=== PATIENT | female | born 1955 | race Caucasian/White ===

== ENCOUNTER → 2019-05-15 | Outpatient (CLI) | payer MEDICARE ==
--- NOTE | 2019-05-15 12:22 | BD ---
EXAMINATION TYPE: Axial Bone Density DATE OF EXAM: 05/15/2019 COMPARISON: NONE CLINICAL HISTORY: Z 78.0 Height: 64 inches Weight: 183 FRAX RISK QUESTIONS: Alcohol (3 or more units per day): no Family History (Parent hip fracture): no Glucocorticoids (More than 3mos): no (Ex: prednisone, prednisolone, methylprednisolone, dexamethasone, and hydrocortisone). History of Fracture in Adulthood: no Secondary Osteoporosis: 1. Type 1 Diabetes: no 2. Hyperthyroidism: no 3. Menopause before 45: no 4. Malnutrition: no 5. Chronic liver disease: no Rheumatoid Arthritis: no Current Tobacco Use: no RISK FACTORS HISTORY OF: Family History of Osteoporosis: not to knowledge of patient Active: yes Diet low in dairy products/other sources of calcium: several servings a week Postmenopausal woman: yes Take estrogen and/or progesterone medications: no Lost more than 2 inches in height since high school: no Frequent falls: no Poor Health: no Hyperparathyroidism: no Adrenal Insufficiency: no MEDICATIONS: Prednisone or other steroids: no Thyroid Medications: no Osteoporosis Medications: no Additional Medications: Additional History: EXAM MEASUREMENTS: Bone mineral densitometry was performed using the [employer] System. Bone mineral density as measured about the Lumbar spine is: ----- L1-L4(G/cm2): 1.209 T Score Values are as follows: ----- L2: 0.1 ----- L3: 0.6 ----- L4: -0.4 ----- L1-L4: 0.2 Bone mineral density not previously done at this facility; done elsewhere years ago Bone mineral density about the R hip (g/cm2): 0.935 Bone mineral density about the L hip (g/cm2): 1.009 T Score values are as follows: -----R Neck: -0.7 -----L Neck: -0.2 -----R Total: 0.1 -----L Total: 0.6 Bone mineral density not previously done at this facility; done elsewhere years ago IMPRESSION: Osteopenia (T Score between -2.5 and -1). There is slightly increased risk of fracture and the patient may be considered for treatment. Re-Screen 2-5 years. NOTE: T-SCORE=SD OF THE YOUNG ADULT MEAN.
--- NOTE | 2019-05-16 13:23 | MM ---
Reason for exam: screening (asymptomatic). History: Patient is postmenopausal. Family history of breast cancer in paternal grandmother. Took hormonal contraceptives for 7 years beginning at age 21. Physical Findings: A clinical breast exam by your physician is recommended on an annual basis and results should be correlated with mammographic findings. MG 3D Screening Mammo W/Cad Bilateral CC and MLO view(s) were taken. The breast tissue is heterogeneously dense. This may lower the sensitivity of mammography. There is an obscured 7mm mass in the right lower inner quadrant, 3-4cm from nipple. On the left there is a 1.5cm oval mass 8cm from nipple in the central, lateral breast. There is an 8mm group of upper outer quadrant middle depth left calcifications. ASSESSMENT: Incomplete: need additional imaging evaluation, BI-RAD 0 RECOMMENDATION: Special view mammogram and ultrasound of both breasts. [facility] will attempt to contact patient to return for supplemental views and ultrasound.
== END | disposition home or self-care (01) ==
LOC: RADBDWWP 08:24
PROVIDERS: ATTEND Family Medicine
DX: Z12.31 Encounter for screening mammogram for malignant neoplasm of breast (principal); M85.80 Other specified disorders of bone density and structure, unspecified site; Z78.0 Asymptomatic menopausal state
CPT/HCPCS: 77063; 77067; 77080

== ENCOUNTER → 2019-06-04 | Outpatient (CLI) | payer MEDICARE ==
--- NOTE | 2019-06-04 11:42 | MM ---
Reason for exam: additional evaluation requested from abnormal screening. Last mammogram was performed 1 month ago. History: Patient is postmenopausal. Family history of breast cancer in paternal grandmother. Took hormonal contraceptives for 7 years beginning at age 21. Physical Findings: Nurse did not find any significant physical abnormalities on exam. MG 3D Work Up W/Cad REBEL Bilateral ML view(s) were taken. Spot compression CC and spot compression MLO view(s) were taken of the right breast. CC with magnification and ML with magnification view(s) were taken of the left breast. Prior study comparison: May 15, 2019, bilateral MG 3d screening mammo w/cad. The breast tissue is heterogeneously dense. This may lower the sensitivity of mammography. There is a right 6mm lobulated mass compatible with a cyst on ultrasound. There is a 1.3cm group of left upper outer quadrant linear coarse heterogenous calcifications. Biopsy recommended. Adjacent similar appearing 2mm group of calcifications. Recommendation based on biopsy of first larger group of calcifications. These results were verbally communicated with the patient and result sheet given to the patient on 06/04/19. ASSESSMENT: Suspicious, BI-RAD 4 RECOMMENDATION: Stereotactic core biopsy of the left breast. Called Dr. Menjivar's office with mammographic findings and has scheduled an appointment for the patient for 06/28/19 at 7:[address] Kenny. Biopsy scheduled for 07/05/19 at 8:00. PRELIMINARY REPORT CALLED AND FAXED TO DR. KENNY ON 06/04/19.
--- NOTE | 2019-06-04 11:44 | USB ---
Reason for exam: additional evaluation requested from abnormal screening. History: Patient is postmenopausal. Family history of breast cancer in paternal grandmother. Took hormonal contraceptives for 7 years beginning at age 21. US Breast Workup Limited REBEL Right limited breast ultrasound including focal area of concern, retroareolar and axilla demonstrates a 0.4 x 0.3 x 0.4cm oval, cystic, hypoechoic lesion at 3 o'clock, complicated cyst, corresponds with mammogram. Left limited breast ultrasound including focal area of concern, retroareolar and axilla demonstrates a 1.3 x 1.1 x 1.3cm round, cystic, hypoechoic lesion at 3 o'clock, complicated cyst, correlates with mammogram. These results were verbally communicated with the patient and result sheet given to the patient on 06/04/19. ASSESSMENT: Incomplete: need additional imaging evaluation, BI-RAD 0 RECOMMENDATION: Special view mammogram of both breasts.
== END | disposition home or self-care (01) ==
LOC: RADMAMWWP 08:23
PROVIDERS: ATTEND Family Medicine
DX: R92.8 Other abnormal and inconclusive findings on diagnostic imaging of breast (principal)
CPT/HCPCS: 77066; 76642; G0279; 77062

== ENCOUNTER → 2019-06-28 | Outpatient (CLI) | payer MEDICARE ==
[2019-06-28 07:35] VITALS: BP 131/84; PULSE 63; RESP 16; TEMP 98.1
--- NOTE | 2019-06-28 08:39 | P.GSHP ---
History of Present Illness H&P Date: 06/28/19 Chief Complaint: Abnormal left breast mammogram Soila is a 64 year old white female seen in consultation for Dr. Jaime regarding an abnormal mammogram of the left breast. She had not had a mammogram for approximately 20 years. On 12160607 a bilateral mammogram was performed. This revealed and scared 7 mm mass in the right lower inner quadrant. On the left there was a 1.5 cm oval mass as well as an 8 mm group of upper outer quadrant middle depth calcifications. It was recommended she undergo additional radiographic views including bilateral ultrasound and bilateral diagnostic mammograms. On the ultrasound she was noted to have cystic lesions bilaterally in the breast. On the additional left breast mammogram she was noted to have upper outer quadrant linear coarse calcifications. Biopsy was recommended. An adjacent similar 2 mm group of calcifications was noted and recommendation for biopsy of this was based on the results from the biopsy of the first group of calcifications. The patient states that she has a pulling sensation noted in her left breast. It was noted when she reaches. She does not have the sensation in the right breast. Sensation is been present for several years. She felt that this was insignificant Intel she was told she needed a biopsy in the left side and now somewhat concerned. She does not feel any discrete lumps masses or nodules in either breast. She is not complaining of any nipple discharge in either breast. She has no skin changes in the breast and no nipple inversion. She has no history of any recent trauma or infection in either breast. Caffeine: ice tea and pop daily nicotine: none chocolate: daily Family History: brother: testicular cancer mother: melanoma paternal grandmother: breast cancer nephew: lung at 17 Hormonal History: menarche: 12 , breast fed: no, first born at 25 menopasue: 49 BCP: 7 years hormones: none Surgical History: 2 C-sections Medical Hsitory: none Social History: smoke: none alcohol: occasional drugs: none - Constitutional Constitutional: Denies chills, Denies fever - EENT Eyes: denies blurred vision, denies pain Ears: deny: decreased hearing, tinnitus Ears, nose, mouth and throat: Denies headache, Denies sore throat - Breasts Breasts: bilateral: as per HPI - Cardiovascular Cardiovascular: Denies chest pain, Denies shortness of breath - Respiratory Respiratory: Denies cough, Denies 7 - Gastrointestinal Gastrointestinal: Denies abdominal pain, Denies diarrhea, Denies nausea, Denies vomiting - Genitourinary (Female) Genitourinary: Denies dysuria, Denies hematuria - Menstruation Menstruation: Reports postmenopausal - Musculoskeletal Musculoskeletal: Denies myalgias - Integumentary Comment: eczema Integumentary: Denies pruritus, Denies rash - Neurological Neurological: Denies numbness, Denies weakness - Psychiatric Psychiatric: Denies anxiety, Denies depression - Endocrine Endocrine: Denies fatigue, Denies weight change - Hematologic/Lymphatic Comment: none - Allergic/Immunologic Allergic/Immunologic: Reports as per HPI Past Medical History Past Medical History: No Reported History History of Any Multi-Drug Resistant Organisms: None Reported Additional Past Surgical History / Comment(s): section 1980 & 1984; Past Anesthesia/Blood Transfusion Reactions: No Reported Reaction Past Psychological History: No Psychological Hx Reported Smoking Status: Never smoker Past Alcohol Use History: Rare Past Drug Use History: None Reported Medications and Allergies Home Medications Medication Instructions Recorded Confirmed Type No Known Home Medications 06/19/19 06/28/19 History Allergies Allergy/AdvReac Type Severity Reaction Status Date / Time No Known Allergies Allergy Verified 06/28/19 07:19 Surgical - Exam Vital Signs Temp Pulse Resp BP Pulse Ox 98.1 F 63 16 131/84 96 06/28/19 07:26 06/28/19 07:26 06/28/19 07:26 06/28/19 07:26 06/28/19 07:26 BMI 30 - General well developed, well nourished, no distress - Eyes normal ocular movement, no icteric - ENT normal pinna, no hearing loss - Neck no masses, trachea midline, no lymphadectomy, no venous distension - Respiratory normal expansion, normal respiratory effort, clear to percussion, clear to auscultation - Cardiovascular Rhythm: regular Heart Sounds: normal: S1, S2 - Abdomen Abdomen: soft, non tender, bowel sounds, no guarding, no rigid, no rebound - Neurologic no disoriented, no combative - Musculoskeletal normal gait, normal posture - Psychiatric oriented to time, oriented to person, oriented to place, speech is normal, memory intact breast exam: BRA 38C ptosis: grade 2 Inspection: Eczema right axillary area, no nipple inversion, no other skin changes of concern Palpation: Right breast: Multi-positional exam fibrocystic disease of dominant masses or nodules of concern Right axilla: No adenopathy of concern Left breast: Multiple positional exam no dominant masses or nodules of concern Left axilla: No adenopathy of concern Results Mammogram and ultrasound reports reviewed Assessment and Plan Assessment: Impression: 1. Radiographic abnormality right and left breast 2. Fibrocystic breast changes 3. Eczema right axilla/bilateral breast, triamcinolone acetonide 4. family history of breast cancer 5. family history of cancer Plan: 1. sterotactic biopsy of the left breast 2. depending on results of the biopsy possible biopsy of second site in left breast 3. decrease caffeine intake 4. continue cream to skin areas of concern I have discussed causes of breast discomfort with the patient. I have recommended that she stop the caffeine, and the potential risks of theophylline intake. We've also discussed the radiographic abnormalities in both the right and left breasts. She has bilateral ultrasound abnormalities which are being followed at this time. In the left breast an area of microcalcifications been sampled. If this is abnormal she will have sampling of the second area in the left breast. She additionally understands the risks and benefits of the stereotactic core biopsy and wishes to proceed. Cc: Dr. Jaime Encounter 35 minutes, > 50% of time in planning and counselling Time with Patient: Greater than 30
== END | disposition home or self-care (01) ==
LOC: WWCWWP 07:06
PROVIDERS: ATTEND Surgery
DX: Z53.9 Procedure and treatment not carried out, unspecified reason (principal)

== ENCOUNTER → 2019-07-05 | Day surgery (SDC) | payer MEDICARE ==
[2019-07-05 07:20] VITALS: RESP 16; TEMP 97.8
--- NOTE | 2019-07-05 09:04 | P.OP ---
Date of Procedure: 07/05/19 Preoperative Diagnosis: Mammographic abnormality right breast, 1.3 cm group of left upper outer quadrant course heterogeneous calcifications Postoperative Diagnosis: Same Procedure(s) Performed: Left breast stereotactic core biopsy Anesthesia: local Surgeon: Supriya Petit Estimated Blood Loss (ml): 0 Pathology: other (Left breast tissue/radiograph reveals microcalcifications of concern in sampled) Condition: stable Disposition: same day Indications for Procedure: Microcalcifications of concern left breast Operative Findings: Microcalcifications of concern removed Description of Procedure: Cydnie 64-year-old white female who had a radiographic abnormality noted in her left breast. Recommendation was for stereotactic core biopsy of a group of heterogeneous calcifications in the left breast in the upper-outer quadrant region. This and benefits of the procedure were discussed with the patient and she wished to proceed. Patient was taken to the stereotactic core biopsy room and positioned on the low rad table. Cloth Shearer film was obtained and the calcifications of concern were identified. The approach was a lateral to medial approach. The breast was then prepped using Betadine. 24 mL of 1% lidocaine half of which had epinephrine were used to anesthetize the area of concern. A 9-gauge vacuum-assisted core rotating biopsy needle was advanced to the correct coordinates. The needle was fired and post-fire films were obtained. The location was noted to be slightly away from the calcifications and the needle was moved in a more negative X direction. Additional film was obtained and the needle. The needle was noted to be in the correct location. 6 core biopsies were then obtained from the 10, 11 and 12 positions. Radiograph of the specimen revealed the calcifications of concern had been sampled. The approach was a lateral to medial approach. A secure pj topically clip was then left in place. The patient tolerated procedure in stable condition. The specimen was sent to pathology.
[2019-07-05 09:24] VITALS: BP 100/65; PULSE 62
--- NOTE | 2019-07-05 09:35 | MM ---
EXAMINATION TYPE: MG stereo VAD BX LT DATE OF EXAM: 07/05/2019 COMPARISON: 06/04/2019 CLINICAL HISTORY: Left breast calcifications for which stereotactic guided biopsy was recommended. TECHNIQUE: Stereotactic guided core biopsy of left breast. FINDINGS: The procedure of stereotactic guided core biopsy was explained to the patient. Benefits, alternatives, and risks were discussed. An informed consent was then obtained. Preprocedural timeout was performed. The shortness pathway for biopsy was chosen to approximately 1.3 cm group of calcifications in the left upper outer quadrant. Shortness pathway was lateral medial approach. I performed the localization, then surgeon, Dr. Marcus Tanner performed the remainder of the procedure. A vacuum assisted biopsy gun was used to obtain multiple core samples. The patient tolerated the procedure well without any immediate complication. The patient was kept in the radiology department for short stay after the procedure and then discharged home in stable condition. Targeted calcifications are identified in specimen mammogram. Post biopsy mammogram shows the clip to appear in satisfactory position relative to the targeted area of concern on the preprocedure images. IMPRESSION: SUCCESSFUL, UNCOMPLICATED STEREOTACTIC GUIDED CORE BIOPSY OF A 1.3 CM GROUP OF CALCIFICATIONS IN THE UPPER OUTER QUADRANT OF THE LEFT BREAST, FULL PATHOLOGY RESULTS TO FOLLOW. Pathology Results: Benign LEFT BREAST LESION, NEEDLE CORE BIOPSIES: Usual duct hyperplasia and fibroadenomatoid lesions in a background of fibrocystic spectrum changes with multiple coarse stromal, vascular and intraductal mineralizations. Recommendation Follow up mammogram of the left breast in 6 months. YASSINE
== END ==
LOC: RADMAMWWP 06:50
PROVIDERS: ATTEND Surgery
DX: N62 Hypertrophy of breast (principal); R92.0 Mammographic microcalcification found on diagnostic imaging of breast; R92.8 Other abnormal and inconclusive findings on diagnostic imaging of breast
CPT/HCPCS: 88305; 19081; A4648; J2001

== ENCOUNTER → 2020-01-03 | Outpatient (CLI) | payer MEDICARE ==
--- NOTE | 2020-01-08 09:28 | MM ---
Reason for exam: follow-up at short interval from prior study. Last mammogram was performed 7 months ago. History: Patient is postmenopausal. Family history of breast cancer in paternal grandmother. Benign MG stereo VAD BX LT of the left breast, July 05, 2019. Took hormonal contraceptives for 7 years beginning at age 21. Physical Findings: Nurse did not find any significant physical abnormalities on exam. MG 3D Diag Mammo W/Cad LT CC and MLO view(s) were taken of the left breast. Prior study comparison: June 04, 2019, bilateral MG 3d work up w/cad REBEL. May 15, 2019, bilateral MG 3d screening mammo w/cad. The breast tissue is heterogeneously dense. This may lower the sensitivity of mammography. Finding: There are large, stable, dystrophic calcifications in the middle posterior position of the left breast. Benign punctate calcifications in the left breast. Previous mammotome biopsy in the left breast. There is a chronic nodularity in the left breast, decreased in size. There is no new dominant lesion in the left breast. These results were verbally communicated with the patient and result sheet given to the patient on 01/03/20. ASSESSMENT: Benign, BI-RAD 2 RECOMMENDATION: Return to routine screening mammogram schedule for both breasts. Back on schedule for April 2020.
== END | disposition home or self-care (01) ==
LOC: RADMAMWWP 09:08
PROVIDERS: ATTEND Surgery
DX: R92.8 Other abnormal and inconclusive findings on diagnostic imaging of breast (principal)
CPT/HCPCS: 77065; G0279; 77061

== ENCOUNTER → 2020-01-17 | Outpatient (CLI) | payer MEDICARE ==
[2020-01-17 09:42] VITALS: BP 120/74; PULSE 60; RESP 16; TEMP 97.9
--- NOTE | 2020-01-17 09:56 | P.PN ---
Galen Cm is a 64 year old white female seen in consultation 06-28-[address] Jaime regarding an abnormal mammogram of the left breast. She had not had a mammogram for approximately 20 years. On 12160607 a bilateral mammogram was performed. This revealed a 7 mm mass in the right lower inner quadrant. On the left there was a 1.5 cm oval mass as well as an 8 mm group of upper outer quadrant middle depth calcifications. It was recommended she undergo additional radiographic views including bilateral ultrasound and bilateral diagnostic mamm ograms. On the ultrasound she was noted to have cystic lesions bilaterally in the breast. On the additional left breast mammogram she was noted to have upper outer quadrant linear coarse calcifications. Biopsy was recommended. An adjacent similar 2 mm group of calcifications was noted and recommendation for biopsy of this was based on the results from the biopsy of the first group of calcifications. She had a stero biopsy of the left breast on 07-05-19 which was benign. She had a repeat left breqsa mammogram on 01-03-20 which was benign BIRAD 2 and bilateral mammogram in April 2020 was recommended. She is not complaining of any lumps masses or nodules in her breast. Caffeine: ice tea and pop daily nicotine: none chocolate: daily Family History: brother: testicular cancer mother: melanoma paternal grandmother: breast cancer nephew: lung at 17 Hormonal History: menarche: 12 , breast fed: no, first born at 25 menopasue: 49 BCP: 7 years hormones: none Surgical History: 2 C-sections Medical Hsitory: none Social History: smoke: none alcohol: occasional drugs: none - Constitutional Constitutional: Denies chills, Denies fever - EENT Eyes: denies blurred vision, denies pain Ears: deny: decreased hearing, tinnitus Ears, nose, mouth and throat: Denies headache, Denies sore throat - Breasts Breasts: bilateral: as per HPI - Cardiovascular Cardiovascular: Denies chest pain, Denies shortness of breath - Respiratory Respiratory: Denies cough - Gastrointestinal Gastrointestinal: Denies abdominal pain, Denies diarrhea, Denies nausea, Denies vomiting - Genitourinary (Female) Genitourinary: Denies dysuria, Denies hematuria - Menstruation Menstruation: Reports postmenopausal - Musculoskeletal Musculoskeletal: Denies myalgias - Integumentary Comment: eczema Integumentary: Denies pruritus, Denies rash - Neurological Neurological: Denies numbness, Denies weakness - Psychiatric Psychiatric: Denies anxiety, Denies depression - Endocrine Endocrine: Denies fatigue, Denies weight change - Hematologic/Lymphatic Comment: none - Allergic/Immunologic Allergic/Immunologic: Reports as per HPI Objective - Vital Signs Vital signs: Vital Signs Temp 97.9 F 01/17/20 09:39 Pulse 60 01/17/20 09:39 Resp 16 01/17/20 09:39 BP 120/74 01/17/20 09:39 Pulse Ox 98 01/17/20 09:39 Intake & Output 01/16/20 01/17/20 01/17/20 18:59 06:59 18:59 Weight 81.647 kg - Exam BMI 30 - Constitutional General appearance: Present: average body habitus - EENT Eyes: Present: EOMI ENT: Present: hearing grossly normal - Neck Neck: Present: normal ROM - Respiratory Respiratory: bilateral: CTA - Cardiovascular Rhythm: regular Heart sounds: normal: S1, S2 - Gastrointestinal General gastrointestinal: Present: normal bowel sounds, soft - Integumentary Integumentary Comment(s): eczema bilateral wrist, right breast upper outer quadrant extending into the axilla Integumentary: Present: normal turgor - Musculoskeletal Musculoskeletal: Present: gait normal - Psychiatric Psychiatric: Present: A&O x's 3, appropriate affect, intact judgment & insight - Additional findings Additional findings: Breast exam: BRA 40C inspection: Eczema upper outer quadrant right breast extending into the axilla, ptosis grade 2 bilateral Palpation: Right breast: Multiple positional exam fibrocystic dense breast tissue no dominant masses or nodules of concern Right axilla: Eczema no adenopathy of concern Left breast: Multi-positional exam fibrocystic changes dense breast tissue no dominant masses or nodules of concern Left axilla: No adenopathy of concern Fungal infection under her left breast Assessment and Plan Assessment: Impression: 1. Fibrocystic breast changes 2. Fungal infection in her left breast 3. Eczema Plan: 1. Nystatin under her left breast 2. Bilateral repeat mammogram in April with physician exam at that time 3. Patient is following with primary care doctor regarding eczema CC: Dr. Jaime encounter 20 minutes, > 50% of time in planning and counselling
== END | disposition home or self-care (01) ==
LOC: WWCWWP 08:59
PROVIDERS: ATTEND Surgery
DX: Z53.9 Procedure and treatment not carried out, unspecified reason (principal)

== ENCOUNTER → 2020-05-05 | Outpatient (CLI) | payer MEDICARE | END | disposition home or self-care (01) | LOC: RADMAMWWP 08:54 | PROVIDERS: ATTEND Surgery | DX: Z53.9 Procedure and treatment not carried out, unspecified reason (principal) ==

== ENCOUNTER → 2020-06-02 | Outpatient (CLI) | payer MEDICARE ==
--- NOTE | 2020-06-05 09:53 | MM ---
Reason for exam: screening (asymptomatic). Last mammogram was performed 5 months ago. History: Patient is postmenopausal. Family history of breast cancer in paternal grandmother. Benign MG stereo VAD BX LT of the left breast, July 05, 2019. Took hormonal contraceptives for 7 years beginning at age 21. Physical Findings: A clinical breast exam by your physician is recommended on an annual basis and results should be correlated with mammographic findings. MG 3D Screening Mammo W/Cad Bilateral CC and MLO view(s) were taken. Prior study comparison: January 03, 2020, left breast MG 3d diag mammo w/cad LT. June 04, 2019, bilateral MG 3d work up w/cad REBEL. The breast tissue is heterogeneously dense. This may lower the sensitivity of mammography. Finding: There are typically benign coarse calcifications in the left breast. No significant changes in finding since January 03, 2020 and June 04, 2019. ASSESSMENT: Benign, BI-RAD 2 RECOMMENDATION: Routine screening mammogram of both breasts in 1 year.
== END | disposition home or self-care (01) ==
LOC: RADMAMWWP 12:57
PROVIDERS: ATTEND Surgery
DX: Z12.31 Encounter for screening mammogram for malignant neoplasm of breast (principal)
CPT/HCPCS: 77063; 77067

== ENCOUNTER → 2020-06-06 | Outpatient (CLI) | payer MEDICARE ==
[2020-06-06 12:09] VITALS: BP 127/63; PULSE 85; RESP 16; TEMP 99.2
--- NOTE | 2020-06-06 12:17 | P.PN ---
Subjective Progress Note Date: 06/06/20 Principal diagnosis: results of mammogram Soila is a 64 year old white female seen in consultation 06-28-[address] Jaime regarding an abnormal mammogram of the left breast. She had not had a mammogram for approximately 20 years. On [id number] a bilateral mammogram was performed. This revealed a 7 mm mass in the right lower inner quadrant. On the left there was a 1.5 cm oval mass as well as an 8 mm group of upper outer quadrant middle depth calcifications. It was recommended she undergo additional radiographic views including bilateral ultrasound and bilateral diagnostic mammograms. On the ultrasound she was noted to have cystic lesions bilaterally in the breast. On the additional left breast mammogram she was noted to have upper outer quadrant linear coarse calcifications. Biopsy was recommended. An adjacent similar 2 mm group of calcifications was noted and recommendation for biopsy of this was based on the results from the biopsy of the first group of calcifications. She had a stero biopsy of the left breast on 07-05-19 which was benign. She had a repeat left breast mammogram on 01-03-20 which was benign BIRAD 2 and bilateral mammogram in April 2020 was recommended. On her last visit of she was noted have a fungal infection under her left breast. She feels that this is most likely resolved at this time, as had eczema in her right axilla. A bilateral mammogram was done on 06-02-20 which was benign BIRAD 2. She is not complaining of any lumps masses or nodules in her breast. Caffeine: ice tea and pop daily nicotine: none chocolate: daily Family History: brother: testicular cancer mother: melanoma paternal grandmother: breast cancer nephew: lung at 17 Hormonal History: menarche: 12 , breast fed: no, first born at 25 menopasue: 49 BCP: 7 years hormones: none Surgical History: 2 C-sections Medical Hsitory: none Social History: smoke: none alcohol: occasional drugs: none - Constitutional Constitutional: Denies chills, Denies fever - EENT Eyes: denies blurred vision, denies pain Ears: deny: decreased hearing, tinnitus Ears, nose, mouth and throat: Denies headache, Denies sore throat - Breasts Breasts: bilateral: as per HPI - Cardiovascular Cardiovascular: Denies chest pain, Denies shortness of breath - Respiratory Respiratory: Denies cough - Gastrointestinal Gastrointestinal: Denies abdominal pain, Denies diarrhea, Denies nausea, Denies vomiting - Genitourinary (Female) Genitourinary: Denies dysuria, Denies hematuria - Menstruation Menstruation: Reports postmenopausal - Musculoskeletal Musculoskeletal: Denies myalgias - Integumentary Comment: eczema Integumentary: Denies pruritus, Denies rash - Neurological Neurological: Denies numbness, Denies weakness - Psychiatric Psychiatric: Denies anxiety, Denies depression - Endocrine Endocrine: Denies fatigue, Denies weight change - Hematologic/Lymphatic Comment: none - Allergic/Immunologic Allergic/Immunologic: Reports as per HPI Objective - Vital Signs Vital signs: Intake & Output 06/05/20 06/06/20 06/06/20 18:59 06:59 18:59 Weight 81.647 kg - Exam BMI 30.9 - Constitutional General appearance: Present: average body habitus - EENT Eyes: Present: EOMI ENT: Present: hearing grossly normal - Neck Neck: Present: normal ROM - Respiratory Respiratory: bilateral: CTA - Cardiovascular Rhythm: regular Heart sounds: normal: S1, S2 - Gastrointestinal General gastrointestinal: Present: soft - Integumentary Integumentary Comment(s): resolving eczema right axilla No evidence of fungal infection under either breast Eczema bilateral forearms Integumentary: Present: normal turgor - Musculoskeletal Musculoskeletal: Present: gait normal - Psychiatric Psychiatric: Present: A&O x's 3 - Additional findings Additional findings: breast exam: BRA 38C inspection: Resolved fungal infection under her left breast Palpation: Right breast: Multi-positional exam no dominant masses or nodules of concern Right axilla: Resolved eczema no adenopathy of concern Left breast: Multi-positional exam no dominant masses or nodules of concern Left axilla: No adenopathy of concern Assessment and Plan Assessment: Impression: 1. Fibrocystic breast changes 2. Resolved fungal infection under the breast Plan: 1. Bilateral mammogram 1 year, to be a primary care physician will follow. Follow up here on an as needed basis Cc: Dr. Jaime encounter 15 minutes, > 50% of time in planning and counselling
== END | disposition home or self-care (01) ==
LOC: WWCWWP 11:39
PROVIDERS: ATTEND Surgery
DX: Z53.9 Procedure and treatment not carried out, unspecified reason (principal)

== ENCOUNTER → 2021-08-18 | Outpatient (CLI) | payer MEDICARE ==
--- NOTE | 2021-08-18 20:30 | BD ---
EXAMINATION TYPE: Axial Bone Density DATE OF EXAM: 08/18/2021 COMPARISON: 05.15.2019 DEXA bone scan. CLINICAL HISTORY: 66 years year old Female. ICD-10 CODE: Z78.0 ASYMPTOMATIC MENOPAUSAL STATE Height: 63.2 Weight: 180 FRAX RISK QUESTIONS: NOTHING TO NOTE HERE RISK FACTORS HISTORY OF: Postmenopausal woman: YES, AT AGE 49 YRS OLD Hyperparathyroidism: NO Adrenal Insufficiency: NO MEDICATIONS: Additional Medications: NOTHING TO NOTE HERE Additional History: NOTHING ADDITIONAL TO NOTE EXAM MEASUREMENTS: Bone mineral densitometry was performed using the [employer] System. Bone mineral density as measured about the Lumbar spine is: ----- L1-L4(G/cm2): 1.279 T Score Values are as follows: ----- L1: 1.1 ----- L2: 1.1 ----- L3: 1.0 ----- L4: 0.2 ----- L1-L4: 0.8 Bone mineral density has: Increased 6.3% since study of: 05.15.2019 Bone mineral density about the R hip (g/cm2): 1.002 Bone mineral density about the L hip (g/cm2): 1.010 T Score values are as follows: -----R Neck: -1.1 -----L Neck: -0.7 -----R Total: 0.0 -----L Total: 0.0 Bone mineral density has: Decreased -4.0% SINCE: 05.15.2019 FRAX%s: The graph provided illustrates a 8.2% CHANCE FOR A MAJOR OSTEOPOROTIC FX AND A 0.7% FOR A HIP .....PROBABILITY FOR FX IN 10 YRS TIME IMPRESSION: Osteopenia (T Score between -2.5 and -1) now present femoral neck level right hip. There is slightly increased risk of fracture and the patient may be considered for treatment. Re-Screen 2-5 years. NOTE: T-SCORE=SD OF THE YOUNG ADULT MEAN.
--- NOTE | 2021-08-19 08:27 | MM ---
Reason for exam: screening (asymptomatic). Last mammogram was performed 1 year and 3 months ago. History: Patient is postmenopausal. Family history of breast cancer in paternal grandmother. Benign MG stereo VAD BX LT of the left breast, July 05, 2019. Took hormonal contraceptives for 7 years beginning at age 21. Physical Findings: A clinical breast exam by your physician is recommended on an annual basis and results should be correlated with mammographic findings. MG 3D Screening Mammo W/Cad Bilateral CC and MLO view(s) were taken. Prior study comparison: June 02, 2020, bilateral MG 3d screening mammo w/cad. January 03, 2020, left breast MG 3d diag mammo w/cad LT. The breast tissue is heterogeneously dense. This may lower the sensitivity of mammography. There are benign appearing round dystrophic calcifications bilaterally, greater in the left breast. There is chronic nodularity in the left breast. There is no discrete abnormality. ASSESSMENT: Benign, BI-RAD 2 RECOMMENDATION: Routine screening mammogram of both breasts in 1 year.
== END | disposition home or self-care (01) ==
LOC: RADMAMWWP 09:53
PROVIDERS: ATTEND Family Medicine
DX: Z12.31 Encounter for screening mammogram for malignant neoplasm of breast (principal); M85.851 Other specified disorders of bone density and structure, right thigh; Z78.0 Asymptomatic menopausal state; Z80.3 Family history of malignant neoplasm of breast
CPT/HCPCS: 77063; 77067; 77080

== ENCOUNTER → 2022-09-10 | Outpatient (CLI) | payer MEDICARE ==
--- NOTE | 2022-09-10 09:28 | MM ---
Reason for Exam: Screening (asymptomatic). Last mammogram was performed 1 year(s) and 1 month(s) ago. Patient History: Menarche at age 13. First Full-Term at age 25. Postmenopausal. Hormonal Contraceptives for 7 years from age 21 until age 30. 07/05/2019, Benign Core Biopsy on the left side. Paternal grandmother had breast cancer. Risk Values: Rayna 5 year model risk: 2.0%. NCI Lifetime model risk: 6.6%. Prior Study Comparison: 01/03/2020 Left Diagnostic Mammogram, [facility]. 06/02/2020 Bilateral Screening Mammogram, [facility]. 08/18/2021 Bilateral Screening Mammogram, [facility]. Tissue Density: The breast tissue is heterogeneously dense. This may lower the sensitivity of mammography. Findings: Analyzed By CAD. There is no suspicious group of microcalcifications or new suspicious mass in either breast. Benign-appearing calcifications within both breasts. Chronic nodularity within left breast. Biopsy clip within the left breast. Overall Assessment: Benign, BI-RAD 2 Management: Screening Mammogram of both breasts in 1 year. A clinical breast exam by your physician is recommended on an annual basis and results should be correlated with mammographic findings. Electronically signed and approved by: Gerald Bower D.O.
== END | disposition home or self-care (01) ==
LOC: RADMAMWWP 09:12
PROVIDERS: ATTEND Family Medicine
DX: Z12.31 Encounter for screening mammogram for malignant neoplasm of breast (principal); Z78.0 Asymptomatic menopausal state; Z80.3 Family history of malignant neoplasm of breast
CPT/HCPCS: 77063; 77067

== ENCOUNTER → 2023-09-13 | Outpatient (CLI) | payer MEDICARE ==
--- NOTE | 2023-09-13 18:21 | BD ---
EXAMINATION TYPE: Axial Bone Density DATE OF EXAM: 09/13/2023 CLINICAL HISTORY: 68 years old Female. ICD-10 CODE: Z78.0 ASYMPTOMATIC MENOPAUSAL Height: 63in Weight: 175lbs FRAX RISK QUESTIONS: Secondary Osteoporosis: RISK FACTORS HISTORY OF: MEDICATIONS: EXAM MEASUREMENTS: Bone mineral densitometry was performed using the [employer] System. Bone mineral density as measured about the Lumbar spine is: ----- L1-L4(G/cm2): 1.307 T Score Values are as follows: ----- L1: 1.6 ----- L2: 0.8 ----- L3: 1.8 ----- L4: 0.2 ----- L1-L4: 1.1 Z Score Values are as follows: ----- L1: 2.7 ----- L2: 2.0 ----- L3: 3.0 ----- L4: 1.3 ----- L1-L4: 2.2 Bone mineral density has: Increased 2.2% since study of: 08-18-21 Bone mineral density about the R hip (g/cm2): 0.998 Bone mineral density about the L hip (g/cm2): 1.020 T Score values are as follows: -----R Neck: -1.0 -----L Neck: -1.2 -----R Total: -0.1 -----L Total: 0.1 Z Score values are as follows: -----R Neck: 0.3 -----L Neck: 0.2 -----R Total: 1.0 -----L Total: 1.2 Bone mineral density has: Increased 0.3% since study of: 08-18-21 FRAX%s: The graph provided illustrates a 8.7% chance for a major osteoporotic fx and a 0.9% chance fo r the hips probability for fx in 10 years time. IMPRESSION: Osteopenia (T Score between -2.5 and -1). There is slightly increased risk of fracture and the patient may be considered for treatment. Re-Screen 2-5 years. NOTE: T-SCORE=SD OF THE YOUNG ADULT MEAN.
--- NOTE | 2023-09-15 08:49 | MM ---
Reason for Exam: Screening (asymptomatic). Last screening mammogram was performed 12 month(s) ago. Patient History: Menarche at age 13. First Full-Term at age 25. Postmenopausal. Hormonal Contraceptives for 7 years from age 21 until age 30. 07/05/2019, Benign Core Biopsy on the left side. Paternal grandmother had breast cancer, age 75. Risk Values: Rayna 5 year model risk: 2.1%. NCI Lifetime model risk: 6.3%. Prior Study Comparison: 06/02/2020 Bilateral Screening Mammogram, [facility]. 08/18/2021 Bilateral Screening Mammogram, [facility]. 09/10/2022 Bilateral MG 3D screening mammo w/cad, [facility]. Tissue Density: The breasts are heterogeneously dense, which may obscure small masses. Findings: Analyzed By CAD. Right breast: There is no suspicious group of microcalcifications or new suspicious mass. Benign-appearing calcifications right breast. Left breast: There is no suspicious group of microcalcifications or new suspicious mass. Benign-appearing calcifications left breast. Overall Assessment: Benign, BI-RAD 2 Management: Screening Mammogram of both breasts in [address] [facility] will attempt to contact patient to return for supplemental views and ultrasound if indicated. Patient should continue monthly self-breast exams. A clinical breast exam by your physician is recommended on an annual basis. This exam should not preclude additional follow-up of suspicious palpable abnormalities. Note on Rayna scores and lifetime risk: 1. A Rayna score greater than 3% is considered moderate risk. If this is the case, consider specialist referral to assess eligibility for a risk reducing agent. 2. If overall lifetime risk for the development of breast cancer is 20% or higher, the patient may qualify for future screening with alternating mammogram and breast MRI. Electronically signed and approved by: Darnell Anthony DO
== END | disposition home or self-care (01) ==
LOC: RADMAMWWP 09:31
PROVIDERS: ATTEND Family Medicine
DX: Z12.31 Encounter for screening mammogram for malignant neoplasm of breast (principal); M85.89 Other specified disorders of bone density and structure, multiple sites; Z78.0 Asymptomatic menopausal state
CPT/HCPCS: 77063; 77067; 77080

== ENCOUNTER → 2024-11-28 | Outpatient (CLI) | payer MEDICARE ==
--- NOTE | 2024-11-28 09:01 | MM ---
Reason for Exam: Screening (asymptomatic). Last mammogram was performed 1 year(s) and 3 month(s) ago. Patient History: Menarche at age 13. First Full-Term at age 25. Postmenopausal. Hormonal Contraceptives for 7 years from age 21 until age 30. 07/05/2019, Benign Core Biopsy on the left side. Paternal grandmother had breast cancer, age 75. Paternal cousin had breast cancer. Sister had breast cancer at or over age 50. Risk Values: Rayna 5 year model risk: 3.6%. NCI Lifetime model risk: 10.4%. Prior Study Comparison: 05/15/2019 Bilateral Screening Mammogram, [facility]. 06/04/2019 Bilateral Diagnostic Mammogram, [facility]. 01/03/2020 Left Diagnostic Mammogram, [facility]. 06/02/2020 Bilateral Screening Mammogram, [facility]. 08/18/2021 Bilateral Screening Mammogram, [facility]. 09/10/2022 Bilateral MG 3D screening mammo w/cad, [facility]. 09/13/2023 Bilateral MG 3D screening mammo w/cad, [facility]. Tissue Density: The breasts are heterogeneously dense, which may obscure small masses. Findings: Analyzed By CAD. Scattered coarse calcifications are redemonstrated. Some fat necrosis calcification central inner left breast posterior depth unchanged. Some chronic nodularity on the right. Microclip left breast from prior biopsy. There is nodular asymmetric density central left middle depth along the retroareolar plane which is more defined and incompletely disperses on 3-D images. This may represent superimposition shadow but further evaluation is recommended. Overall Assessment: Incomplete: need additional imaging evaluation, BI-RAD 0 Management: Special View Mammogram of the left breast. Include a 3-D CC rolled view. [facility] will attempt to contact patient to return for supplemental views and ultrasound if indicated. See note below in regards to the patient's increased 5 year Rayna score Note on Rayna scores and lifetime risk: 1. A Rayna score greater than 3% is considered moderate risk. If this is the case, consider specialist referral to assess eligibility for a risk reducing agent. 2. If overall lifetime risk for the development of breast cancer is 20% or higher, the patient may qualify for future screening with alternating mammogram and breast MRI. [facility], , 11/28/2024 8:58 AM. Electronically signed and approved by: Pam Tracy M.D. Radiologist
== END | disposition home or self-care (01) ==
LOC: RADMAMWWP 07:26
PROVIDERS: ATTEND Family Medicine
DX: Z12.31 Encounter for screening mammogram for malignant neoplasm of breast (principal); R92.333 Mammographic heterogeneous density, bilateral breasts; Z78.0 Asymptomatic menopausal state; Z80.3 Family history of malignant neoplasm of breast; Z92.0 Personal history of contraception
CPT/HCPCS: 77063; 77067

== ENCOUNTER → 2024-12-03 | Outpatient (CLI) | payer MEDICARE ==
--- NOTE | 2024-12-03 15:03 | MM ---
Reason for Exam: Additional evaluation requested from abnormal screening. Last screening mammogram was performed less than 1 month ago. Patient History: Menarche at age 13. First Full-Term at age 25. Postmenopausal. Hormonal Contraceptives for 7 years from age 21 until age 30. 07/05/2019, Benign Core Biopsy on the left side. Paternal grandmother had breast cancer, age 75. Paternal cousin had breast cancer. Sister had breast cancer at or over age 50. Risk Values: Rayna 5 year model risk: 3.6%. NCI Lifetime model risk: 10.4%. Prior Study Comparison: 09/10/2022 Bilateral MG 3D screening mammo w/cad, [facility]. 09/13/2023 Bilateral MG 3D screening mammo w/cad, [facility]. 11/28/2024 Bilateral MG 3D screening mammo w/cad, [facility]. Tissue Density: Left: The breasts are heterogeneously dense, which may obscure small masses. Findings: Analyzed By CAD. No suspicious new focal mass seen on additional views. Overall Assessment: Negative, BI-RAD 1 Management: Screening Mammogram of both breasts in 1 year. Return to routine follow-up.. Results were given to the patient verbally at the time of exam. Patient should continue monthly self-breast exams. A clinical breast exam by your physician is recommended on an annual basis. This exam should not preclude additional follow-up of suspicious palpable abnormalities. Note on Rayna scores and lifetime risk: 1. A Rayna score greater than 3% is considered moderate risk. If this is the case, consider specialist referral to assess eligibility for a risk reducing agent. 2. If overall lifetime risk for the development of breast cancer is 20% or higher, the patient may qualify for future screening with alternating mammogram and breast MRI. [facility], , 12/03/2024 2:57 PM. Electronically signed and approved by: Nahun Bullock M.D.
== END | disposition home or self-care (01) ==
LOC: RADMAMWWP 14:36
PROVIDERS: ATTEND Family Medicine
DX: R92.8 Other abnormal and inconclusive findings on diagnostic imaging of breast (principal); R92.332 Mammographic heterogeneous density, left breast; Z78.0 Asymptomatic menopausal state; Z80.3 Family history of malignant neoplasm of breast; Z92.0 Personal history of contraception
CPT/HCPCS: 77061; 77065